=== PATIENT | female | born 1965 | race American Indian/Alaskan Native ===

== ENCOUNTER 2018-10-25 03:29 | Emergency (ER) | payer OTHER ==
[2018-10-25] MEDS ORDERED: TYLENOL ONE (03:47)
[2018-10-25] MEDS ORDERED: REGLAN IV ONE (04:15)
[2018-10-25] MEDS ORDERED: MORPHINE IV ONE (04:15)
--- NOTE | 2018-10-25 05:00 | Cat Scan Report ---
FINAL REPORT EXAM: CT HEAD/BRAIN WO CON HISTORY: headache TECHNIQUE: CT imaging acquired through the head without intravenous contrast. Transaxial reformatio ns are provided. PRIORS: None. FINDINGS: The ventricles, cisterns and sulci are within normal limits. No intraparenchymal or extra-axial mass, hemorrhage, or mass effect. Abdi and white-matter differentiation is within normal limits for patie nt age. Normal spherical shape of the globes. No significant abnormality involving the imaged portions of the paranasal sinuses and mastoid air cells. No skull or facial fracture visualized. IMPRESSION: No acute intracranial abnormality.
[2018-10-25] MEDS ORDERED: NACL 0.9% 1000 ML 1,000 ML IV ONE (05:09)
[2018-10-25] MEDS ORDERED: DILAUDID IV ONE (05:09)
[2018-10-25] MEDS ORDERED: ZOFRAN IV ONE (06:09)
[2018-10-25] MEDS ORDERED: FIORICET PO ONE (06:09)
--- NOTE | 2018-10-25 06:15 | Emergency Department Report ---
HPI - General Chief Complaint: Headache Time Seen by Provider: 10/25/18 04:08 - HPI HPI: Room 21 The patient is a 53-year-old female presenting with chief complaint of headache. Patient states she had headache 01:00 includes entire right side of her head. Patient denies any preceding trauma or fever. Patient is to nausea and vomiting. The patient states she's had headaches like this for 1 year but has never been formally diagnosed with migraines by a neurologist. The patient states prior to arrival to the ED her pain was a "15/10." After administration of morphine and Zofran by the overnight physician she states her pain has come down to a "12/10." Location: Right side of head Duration: Intermittent times one year Quality: Pain Severity: [See above] Modifying factors: [see above] Context: [see above] Mode of transportation: [not driving] ED Past Medical Hx - Past Medical History Hx Hypertension: Yes Hx Heart Attack/AMI: Yes ("heart troubles") Hx Headaches / Migraines: Yes Hx Asthma: Yes Additional medical history: "HYPERTHYROID". Insomnia - Surgical History Additional Surgical History: "Leg surgery" - Family History Family history: no significant - Social History Smoking Status: Current Some Day Smoker Substance Use Type: None, Marijuana - Medications Home Medications: Home Medications Medication Instructions Recorded Confirmed Last Taken Type methIMAzole [Tapazole] 5 mg PO Q8HR #90 tablet 08/25/15 09/11/15 09/10/15 Rx 5 MG Megestrol [Megace] 20 mg PO TID #90 tablet 08/28/15 09/11/15 09/10/15 Rx 20 MG Metoprolol [Lopressor TAB] 50 mg PO BID #60 tablet 08/28/15 09/11/15 09/10/15 Rx 50 MG Temazepam [Restoril] 15 mg PO QHS PRN #16 capsule 09/11/15 Unknown Rx Butalb/Acetamin/Caff 50-325-40 2 tab PO Q8HR PRN #30 tablet 10/25/18 Unknown Rx [Fioricet] HYDROcodone/APAP 5-325 [Peridot 1 - 2 each PO Q6HR PRN #14 tablet 10/25/18 Unknown Rx 5/325] Ondansetron [Zofran ODT TAB] 8 mg PO Q8HR #20 tab.rapdis 10/25/18 Unknown Rx ED Review of Systems ROS: Stated complaint: HEADACHE Other details as noted in HPI Constitutional: denies: fever Eyes: denies: vision change ENT: denies: throat pain Respiratory: no symptoms reported Cardiovascular: denies: chest pain Endocrine: no symptoms reported Gastrointestinal: nausea, vomiting Musculoskeletal: denies: back pain Neurological: headache Physical Exam - Physical Exam Vital Signs: Vital Signs 10/25/18 04:25 Respiratory 18 Rate Physical Exam: GENERAL: The patient is well-developed well-nourished female lying on stretcher appearing to be in mild discomfort with towel covering her head HEENT: Normocephalic. Atraumatic. Extraocular motions are intact. Patient has moist mucous membranes. NECK: Supple. No meningitic signs are noted. Trachea midline CHEST/LUNGS: Clear to auscultation. There is no respiratory distress noted. HEART/CARDIOVASCULAR: Regular. There is no tachycardia. There is no gallop rub or murmur. ABDOMEN: Abdomen is soft, nontender. Patient has normal bowel sounds. There is no abdominal distention. SKIN: There is no rash. There is no edema. There is no diaphoresis. NEURO: The patient is awake, alert, and oriented. The patient is cooperative. The patient has no focal neurologic deficits. The patient has normal speech. Cranial nerves II through XII grossly intact, no drift MUSCULOSKELETAL: There is no evidence of acute injury. ED Course Vital Signs 10/25/18 04:25 Respiratory 18 Rate - Reevaluation(s) Reevaluation #1: 10/25/18 07:36 Patient resting comfortably. When awakened she states her pain is improved "a lot." Patient states her pain has now decreased to approximately 5.5/10. Strong warnings given ED Medical Decision Making - Differential Diagnosis migraines, ICH, intracranial mass Critical care attestation.: If time is entered above; I have spent that time in minutes in the direct care of this critically ill patient, excluding procedure time. ED Disposition Clinical Impression: Headache Disposition: DC-01 TO HOME OR SELFCARE Is pt being admited?: No Does the pt Need Aspirin: No Condition: Stable Instructions: Acute Headache (ED), Cluster Headache (ED), Migraine Headache (ED) Additional Instructions: Return to the emergency department immediately should you develop worsening symptoms, fever, inability to tolerate food or liquid or any other concerns. Prescriptions: Butalb/Acetamin/Caff 50-325-40 [Fioricet] 2 tab PO Q8HR PRN #30 tablet PRN Reason: Headache HYDROcodone/APAP 5-325 [Peridot 5/325] 1 - 2 each PO Q6HR PRN #14 tablet PRN Reason: Pain Ondansetron [Zofran ODT TAB] 8 mg PO Q8HR #20 tab.rapdis Referrals: DANIKA ALEX MD [Staff Physician] - [facility] (Dr Alex is a neurologist. Please follow up with him for further evaluation) MARGA DONAHUE [Staff Physician] - 3-5 Days (Dr Donahue is a primary physician. Please follow up with them to be established as a patient) Time of Disposition: 07:45
[2018-10-25 08:01] VITALS: BP 145/81
== END 2018-10-25 08:00 | disposition home or self-care (01) ==
LOC: ED 03:29
DX: R51 Headache (principal); R11.2 Nausea with vomiting, unspecified; I10 Essential (primary) hypertension; G43.909 Migraine, unspecified, not intractable, without status migrainosus; E05.90 Thyrotoxicosis, unspecified without thyrotoxic crisis or storm; J45.909 Unspecified asthma, uncomplicated; I25.2 Old myocardial infarction; F17.200 Nicotine dependence, unspecified, uncomplicated; F12.10 Cannabis abuse, uncomplicated; Z79.899 Other long term (current) drug therapy; Z88.6 Allergy status to analgesic agent; Z88.1 Allergy status to other antibiotic agents
CPT/HCPCS: 70450; 96361; 96374; 96375; 99284; J1170; J2270; J2405; J2765; J7030; 96376

== ENCOUNTER 2019-10-10 05:42 | Emergency (ER) | payer OTHER ==
[2019-10-10 09:28] VITALS: BP 163/95
== END 2019-10-10 09:29 | disposition left against medical advice (07) ==
LOC: ED 05:42
DX: R51 Headache (principal); Z53.21 Procedure and treatment not carried out due to patient leaving prior to being seen by health care provider